=== PATIENT | female | born 1960 | race Asian ===

== ENCOUNTER 2017-01-20 13:13 | Outpatient (CLI) | payer OTHER | END 2017-01-20 13:14 | disposition home or self-care (01) | DX: Z12.31 Encounter for screening mammogram for malignant neoplasm of breast (principal) ==

== ENCOUNTER 2018-08-03 14:41 | Outpatient (CLI) | payer OTHER ==
[2018-08-03 18:41] LABS: BASOPHILS % (AUTO) 0.7 %; EOSINOPHILS # (AUTO) 0.2 10^3/uL (0.0-0.7); EOSINOPHILS % (AUTO) 3.9 %; HGB - HEMOGLOBIN 12.2 g/dL (12.0-16.0); LYMPHOCYTES # (AUTO) 1.3 10^3/uL (1.5-3.5); LYMPHOCYTES % (AUTO) 28.9 %; MEAN CORPUSCULAR HEMOGLOBIN 23.4 pg (27.0-31.0); MEAN CORPUSCULAR HGB CONC 31.6 g/dL (32.0-36.0); MEAN CORPUSCULAR VOLUME 74.1 fL (81.0-99.0); MEAN PLATELET VOLUME 7.9 fL (7.9-10.8); MONOCYTES # (AUTO) 0.3 10^3/uL (0.0-1.0); MONOCYTES % (AUTO) 7.1 %; NEUTROPHILS # (AUTO) 2.7 10^3/uL (1.5-6.6); NEUTROPHILS % (AUTO) 59.4 %; PLT - PLATELET COUNT 326 10^3/uL (130-450); RED BLOOD COUNT 5.21 10^6/uL (4.20-5.40); RED CELL DISTRIBUTION WIDTH 14.8 % (12.0-15.0); WHITE BLOOD COUNT 4.5 x10^3/uL (4.8-10.8)
[2018-08-03 19:12] LABS: ALBUMIN 4.3 g/dL (3.2-5.5); ALBUMIN/GLOBULIN RATIO 1.3 (1.0-2.2); ALKALINE PHOSPHATASE 71 IU/L (42-121); ALT ALANINE AMINOTRANSFERASE 15 IU/L (10-60); AST ASPARTATE AMINOTRANSFERASE 18 IU/L (10-42); BILIRUBIN,TOTAL 0.6 mg/dL (0.2-1.0); BUN - BLOOD UREA NITROGEN 22 mg/dL (6-20); CALCIUM 9.4 mg/dL (8.5-10.3); CARBON DIOXIDE - CO2 29 mmol/L (21-32); CHLORIDE 102 mmol/L (101-111); CHOL/HDL RATIO 2.4 (<4.4); CHOLESTEROL 186 mg/dL; CREATININE 0.7 mg/dL (0.4-1.0); GFR - MDRD 87 (>89); GLUCOSE 93 mg/dL (70-100); HDL CHOLESTEROL 77 mg/dL; LDL CHOLESTEROL,CALCULATED 90 mg/dL; LDL/HDL RATIO 1.2 (<4.4); SODIUM 139 mmol/L (135-145); TOTAL PROTEIN 7.5 g/dL (6.7-8.2); VLDL CHOLESTEROL 19 mg/dL
== END 2018-08-03 14:42 ==
LOC: LAB.WCP 14:41
PROVIDERS: ATTEND Family Medicine
DX: Z00.00 Encounter for general adult medical examination without abnormal findings (principal); K76.0 Fatty (change of) liver, not elsewhere classified; D56.9 Thalassemia, unspecified
CPT/HCPCS: 36415; 80053; 80061; 83721; 84443; 85025

== ENCOUNTER 2018-09-01 16:17 | Outpatient (CLI) | payer OTHER | END 2018-09-01 16:18 | disposition home or self-care (01) | LOC: LAB.R 16:17 | PROVIDERS: ATTEND Nurse Practitioner | DX: R32 Unspecified urinary incontinence (principal) | CPT/HCPCS: 87077; 87086; 87181 ==

== ENCOUNTER 2020-01-29 14:30 | Outpatient (CLI) | payer BC | END 2020-01-29 14:31 | disposition home or self-care (01) | LOC: COV 14:30 | PROVIDERS: ATTEND Family Medicine | DX: R05 Cough (principal); R50.9 Fever, unspecified | CPT/HCPCS: 81599 ==

== ENCOUNTER 2022-01-20 08:26 | Day surgery (SDC) | payer BC ==
[2022-01-20] MEDS ORDERED: LACTATED RINGERS 1,000 ML IV ONE ×2 (08:35→09:50)
[2022-01-20] MEDS ORDERED: PROPOFOL 500 MG/50 ML 500 MG/50 ML VIAL ONE (08:57)
--- NOTE | 2022-01-20 09:03 | ANESTHESIA ---
Pre-Anesthesia VS, & Labs - Diagnosis screening - Procedure colonoscopy Vital Signs: Temp Pulse Resp BP Pulse Ox 36.3 C L 57 L 16 98/72 100 01/20/22 08:46 01/20/22 08:46 01/20/22 08:46 01/20/22 08:46 01/20/22 08:46 Height: 5 ft 3 in Weight (kg): 65.5 kg Body Mass Index: 25.5 BMI Classification: Overweight - NPO Other (clear liquid 0700) - Is Patient ?: No Home Medications and Allergies Home Medications: Ambulatory Orders Cetirizine [ZyrTEC] 1 tab PO PRN PRN 01/19/22 Cholecalciferol (Vitamin D3) [Vitamin D3] 1 cap PO DAILY 01/19/22 Cyanocobalamin (Vitamin B-12) [Vitamin B-12] 1 cap PO DAILY 01/19/22 Cetirizine [ZyrTEC] 1 tab PO PRN PRN 01/19/22 Cholecalciferol (Vitamin D3) [Vitamin D3] 1 cap PO DAILY 01/19/22 Cyanocobalamin (Vitamin B-12) [Vitamin B-12] 1 cap PO DAILY 01/19/22 Allergies/Adverse Reactions: Allergies Allergy/AdvReac Type Severity Reaction Status Date / Time Alcohol AdvReac Rash Uncoded 01/19/22 11:32 Anes History & Medical History - Anesthetic History Anesthesia Complications: reports: No previous complications Family history of Anesthesia Complications: Denies Family history of Malignant Hyperthermia: Denies - Medical History Cardiovascular: reports: None Pulmonary: reports: None Gastrointestinal: reports: GERD, Chronic constipation Urinary: reports: None Musculoskeletal: reports: None Endocrine/Autoimmune: reports: None Skin: reports: None - Surgical History General: reports: Colonoscopy Gynecologic: reports: Tubal ligation Exam General: Alert, Oriented x3, Cooperative Dental: WNL Mouth Openin Fingerbreadth Neck Mobility: Normal Mallampati classification: II Respiratory: Lungs clear Cardiovascular: Regular rate Plan Anesthesia Type: Total IV Consent for Procedure(s) Verified and Reviewed: Yes Code Status: Attempt Resuscitation ASA classification: 1-Healthy patient Is this case an emergency?: No
[2022-01-20 10:53] VITALS: BP 111/78
--- NOTE | 2022-01-20 15:11 | ANESTHESIA POST OP EVALUATION ---
Anesthesia Post Eval - Post Anesthesia Eval Vitals: Last Vital Signs Temp 36.1 C L 01/20/22 10:35 Pulse 64 01/20/22 10:35 Resp 16 01/20/22 10:35 BP 111/78 01/20/22 10:35 Pulse Ox 98 01/20/22 10:35 CV Function Including HR & BP: Stable Pain Control: Satisfactory Nausea & Vomiting: Negative Mental Status: Baseline Respiratory Status: Airway Patent Hydration Status: Satisfactory Anesthesia Complications: None
== END 2022-01-20 08:27 | disposition home or self-care (01) ==
LOC: SDS 08:26
PROVIDERS: ATTEND Surgery
DX: Z12.11 Encounter for screening for malignant neoplasm of colon (principal); K57.30 Diverticulosis of large intestine without perforation or abscess without bleeding; K64.8 Other hemorrhoids
CPT/HCPCS: 45378; J7120